=== PATIENT | female | born 1980 | race Two or more races ===

== ENCOUNTER → 2019-10-25 | Outpatient (CLI) | payer OTHER ==
[~2019-10-25] MED LIST: PRENATAL TABLE1 EAC3 PO
== END | disposition home or self-care (01) ==
LOC: PRENATAL 12:49
DX: O36.80X1 Pregnancy with inconclusive fetal viability, fetus 1 (principal); O09.521 Supervision of elderly multigravida, first trimester; Z36.82 Encounter for antenatal screening for nuchal translucency

== ENCOUNTER → 2019-12-12 | Outpatient (CLI) | payer OTHER | END | disposition home or self-care (01) | LOC: PRENATAL 13:00 | DX: O35.3XX1 Maternal care for (suspected) damage to fetus from viral disease in mother, fetus 1 (principal); O34.212 Maternal care for vertical scar from previous cesarean delivery; O09.522 Supervision of elderly multigravida, second trimester ==

== ENCOUNTER 2020-04-18 16:46 | Inpatient (IN) | payer OTHER ==
[~2020-04-18] VITALS: Ht 160 cm; Wt 3.2 kg
[2020-04-25] MEDS ORDERED: DOCUSATE SODIU100 MG PO (12:22)
[2020-04-25] MEDS ORDERED: CODE1TAB37 PO (12:22)
== END 2020-04-25 12:58 | disposition home or self-care (01) | DRG 785 ==
LOC: OB/GYN 04-22 08:43 → LDR 04-22 08:43 → OB/GYN 04-22 10:37 → LDR 04-25 16:17
PROVIDERS: ADMIT Obstetrics & Gynecology; ATTEND Obstetrics & Gynecology
PROC: 0UL70ZZ Occlusion of Bilateral Fallopian Tubes, Open Approach (ICD-10-PCS; 2020-04-22)
PROC: 4A1HXCZ Monitoring of Products of Conception, Cardiac Rate, External Approach (ICD-10-PCS; 2020-04-22)
PROC: 10D00Z1 Extraction of Products of Conception, Low, Open Approach (ICD-10-PCS; principal; 2020-04-22 13:15)
DX: O82 Encounter for cesarean delivery without indication (principal); Z20.828 Contact with and (suspected) exposure to other viral communicable diseases; Z3A.38 38 weeks gestation of pregnancy; Z37.0 Single live birth; Z30.2 Encounter for sterilization

== ENCOUNTER 2021-05-22 08:15 | Outpatient (CLI) | payer OTHER ==
[~2021-05-22 08:15] MED LIST changes: +CODE1TAB37 PO; +DOCUSATE SODIU100 MG PO
== END 2021-05-22 08:30 | disposition home or self-care (01) ==
LOC: PPH VACUNA 08:15
PROVIDERS: ATTEND Emergency Medicine Pediatric Emergency Medicine
DX: Z23 Encounter for immunization (principal)

== ENCOUNTER 2022-04-29 15:16 | Outpatient (CLI) | payer OTHER | END 2022-04-29 15:33 | disposition home or self-care (01) | LOC: MAMO-SONO 15:16 | PROVIDERS: ATTEND Obstetrics & Gynecology | DX: Z12.31 Encounter for screening mammogram for malignant neoplasm of breast (principal); N60.11 Diffuse cystic mastopathy of right breast; N60.12 Diffuse cystic mastopathy of left breast ==